=== PATIENT | male | born 1975 | race Caucasian/White ===

== ENCOUNTER 2018-10-13 17:46 | Emergency (ER) | payer BC ==
[2018-10-13 17:59] VITALS: BP 130/83
--- NOTE | 2018-10-13 18:49 | UC ---
Lower Extremity/Ankle HPI - HPI Summary HPI Summary: 43-year-old male presents with complaints of right ankle pain and swelling. States approximately 5:30 this evening he jumped out of a camper and landed in a small divot in the ground causing an inversion injury to the ankle. States he was to bear weight immediately after the injury with a fair amount of pain. Denies any numbness or tingling. - History of Current Complaint Chief Complaint: UCLowerExtremity Stated Complaint: RT LEG/ANKLE INJURY Time Seen by Provider: 10/13/18 18:20 Hx Obtained From: Patient Pain Intensity: 6 - Allergies/Home Medications Allergies/Adverse Reactions: Allergies Allergy/AdvReac Type Severity Reaction Status Date / Time levofloxacin [From Levaquin] Allergy Hives Verified 10/13/18 17:59 Home Medications: Home Medications Omeprazole 20 mg PO 10/13/18 [History] PMH/Surg Hx/FS Hx/Imm Hx Previously Healthy: Yes GI/ History: Gastroesophageal Reflux - Surgical History Surgical History: None - Family History Known Family History: Positive: Non-Contributory - Social History Occupation: Employed Full-time Lives: With Family Alcohol Use: Occasionally Substance Use Type: None Smoking Status (MU): Former Smoker Amount Used/How Often: <1 PPD Length of Time of Smoking/Using Tobacco: 18 Years Have You Smoked in the Last Year: Yes Review of Systems All Other Systems Reviewed And Are Negative: Yes Constitutional: Positive: Negative Skin: Positive: Bruising Respiratory: Positive: Negative Cardiovascular: Positive: Negative Gastrointestinal: Positive: Negative Genitourinary: Positive: Negative Motor: Negative: Weakness Neurovascular: Negative: Negative Musculoskeletal: Positive: Other: - See HPI Neurological: Positive: Negative Is Patient Immunocompromised?: No Physical Exam - Summary Physical Exam Summary: GENERAL APPEARANCE: Well developed, well nourished, alert and cooperative, and appears to be in no acute distress. CARDIAC: Normal S1 and S2. No S3, S4 or murmurs. Rhythm is regular. There is no peripheral edema, cyanosis or pallor. Extremities are warm and well perfused. Capillary refill is less than 2 seconds. Peripheral pulses intact. LUNGS: Clear to auscultation without rales, rhonchi, wheezing or diminished breath sounds. ABDOMEN: Positive bowel sounds. Soft, nondistended, nontender. No guarding or rebound. No masses or hepatosplenomegally. MUSKULOSKELETAL: Normal muscular development. EXTREMITIES: Tenderness, edema, and ecchymosis over the right lateral malleolus without gross deformity. No laxity of the ankle. Circulation and sensation intact. SKIN: Skin normal color, texture and turgor with no lesions or eruptions. Triage Information Reviewed: Yes Vital Signs: Initial Vital Signs Temp 97.1 F 10/13/18 17:54 Pulse 71 10/13/18 17:54 Resp 18 10/13/18 17:54 BP 130/83 10/13/18 17:54 Pulse Ox 98 10/13/18 17:54 Vital Signs Reviewed: Yes Lower Extremity Course/Dx - Course Course Of Treatment: 43-year-old male presents with complaints of right ankle pain and swelling. States approximately 5:30 this evening he jumped out of a camper and landed in a small divot in the ground causing an inversion injury to the ankle. States he was to bear weight immediately after the injury with a fair amount of pain. Denies any numbness or tingling. Afebrile. Vital signs stable. Patient had tenderness, edema, and ecchymosis over the right lateral malleolus without gross deformity. No laxity of the ankle. Circulation and sensation intact. Remainder of exam is unremarkable. Preliminary x-ray of the ankle showed no acute fracture. Patient was placed in an Avery wrap and stirrup splint by the RN. Circulation sensation were intact pre-and post-application. Patient was provided with crutches to remain nonweightbearing for the next 2-3 days followed by progressive weightbearing. Recommending conservative treatment for an ankle sprain including [id number] analgesics for pain, he is provided a very short-term prescription for hydrocodone/acetaminophen 5 mg/325 mg 1 tab every 6 hours as needed for severe pain, and RICE. He is to follow-up with orthopedic surgery in 5-7 days especially if symptoms are not improving. Anticipatory guidance and warning symptoms were reviewed with the patient. Verbalized understanding and agrees with plan of care. - Differential Dx/Diagnosis Differential Diagnosis/HQI/PQRI: Dislocation, Fracture (Closed), Sprain Provider Diagnosis: Right ankle sprain Discharge - Sign-Out/Discharge Documenting (check all that apply): Patient Departure All imaging exams completed and their final reports reviewed: No - Discharge Plan Condition: Stable Disposition: HOME Prescriptions: Hydrocodone/Acetaminophen [Hydrocodone-Acetamin 5-325 mg] 1 each PO Q6HR PRN #4 tablet MDD 4 PRN Reason: Severe Pain Patient Education Materials: Ankle Sprain (ED), Crutch Instructions (ED), Ankle Stirrup Splint (ED) Forms: *Work Release Referrals: No Primary Care Phys,NOPCP [Primary Care Provider] - Long Gamino MD [Medical Doctor] - 5 Days (Call for an appointment.) Additional Instructions: The x-ray performed in the clinic today showed no evidence of a fracture. I suspect that you have a sprain of the ankle. Use the AVERY wrap applied in the clinic to help reduce swelling. Use the ankle brace until you are pain-free or have been cleared by orthopedic surgery. Rest the ankle as much as possible. You should remain non-weight bearing for the next 2-3 days then may slowly increase the amount of weight as tolerated. Use the crutches provided to you. Apply ice to the affected area for 15-20 minutes at least 4 times a day to help with the pain and swelling. Elevate the leg to help reduce swelling. Take acetaminophen (Tylenol) or ibuprofen (Advil, Motrin) according to directions as needed for pain. Follow up with orthopedic surgery in 5-7 days especially if symptoms do not improve. Seek immediate medical attention if you have severe pain not managed with pain medication, you are unable to walk or bear any weight, develop numbness or tingling in the foot or toes, or have any worsening of symptoms. - Billing Disposition and Condition Condition: STABLE Disposition: Home - Attestation Statements Provider Attestation: Per institutional requirements, I have reviewed the chart, however, I was not consulted specifically or made aware of this patient by the midlevel provider. I did not personally evaluate, interact with , or disposition this patient.
--- NOTE | 2018-10-14 12:55 | UC ---
- Progress Note Progress Note: RADIOLOGY REPORT REVIEWED. Normal ankle radiograph. NO CHANGE IN MGMT. Course/Dx - Diagnoses Provider Diagnoses: Right ankle sprain Discharge - Sign-Out/Discharge Documenting (check all that apply): Post-Discharge Follow Up All imaging exams completed and their final reports reviewed: Yes - Discharge Plan Condition: Stable Disposition: HOME Prescriptions: Hydrocodone/Acetaminophen [Hydrocodone-Acetamin 5-325 mg] 1 each PO Q6HR PRN #4 tablet MDD 4 PRN Reason: Severe Pain Patient Education Materials: Ankle Sprain (ED), Crutch Instructions (ED), Ankle Stirrup Splint (ED) Forms: *Work Release Referrals: Long Gamino MD [Medical Doctor] - 5 Days (Call for an appointment.) No Primary Care Phys,NOPCP [Primary Care Provider] - Additional Instructions: The x-ray performed in the clinic today showed no evidence of a fracture. I suspect that you have a sprain of the ankle. Use the JULIEN wrap applied in the clinic to help reduce swelling. Use the ankle brace until you are pain-free or have been cleared by orthopedic surgery. Rest the ankle as much as possible. You should remain non-weight bearing for the next 2-3 days then may slowly increase the amount of weight as tolerated. Use the crutches provided to you. Apply ice to the affected area for 15-20 minutes at least 4 times a day to help with the pain and swelling. Elevate the leg to help reduce swelling. Take acetaminophen (Tylenol) or ibuprofen (Advil, Motrin) according to directions as needed for pain. Follow up with orthopedic surgery in 5-7 days especially if symptoms do not improve. Seek immediate medical attention if you have severe pain not managed with pain medication, you are unable to walk or bear any weight, develop numbness or tingling in the foot or toes, or have any worsening of symptoms. - Billing Disposition and Condition Condition: STABLE Disposition: Home
== END 2018-10-13 19:12 | disposition home or self-care (01) ==
LOC: UCEAST 17:46
DX: S93.401A Sprain of unspecified ligament of right ankle, initial encounter (principal); X50.1XXA Overexertion from prolonged static or awkward postures, initial encounter; Y93.39 Activity, other involving climbing, rappelling and jumping off; Y92.89 Other specified places as the place of occurrence of the external cause; K21.9 Gastro-esophageal reflux disease without esophagitis; Z88.1 Allergy status to other antibiotic agents; Z87.891 Personal history of nicotine dependence
CPT/HCPCS: 99213; G0463